=== PATIENT | female | born 1950 | race Caucasian/White ===

== ENCOUNTER 2017-12-18 05:21 | Inpatient (IN) | payer MEDICARE ==
[2017-12-11 11:16] LABS: CLARITY,URINE SLIGHTLY CLOUDY (Clear); COLOR,URINE YELLOW (Yellow); GLUCOSE, URINE NEGATIVE (Neg); KETONES,URINE NEGATIVE (Neg); LEUKOCYTE ESTERASE ,URINE SMALL (Neg); NITRITES, URINE NEGATIVE (Neg); OCCULT BLOOD,URINE NEGATIVE (Neg); PROTEIN,URINE NEGATIVE (Neg); UROBILINOGEN,URINE 0.2 E.U/dL (0.2-1.0)
[2017-12-11 11:19] LABS: UA COLLECTION TYPE CLN CATCH MIDSTREAM
[2017-12-11 11:22] LABS: MUCUS STRANDS NONE SEEN /LPF (Neg); RBC,URINE 0-2 /HPF (0-2); SQUAMOUS EPITHELIAL CELL,UR FEW /LPF (FEW); TRANSITIONAL EPI CELLS,URINE FEW /HPF
[2017-12-11 11:23] LABS: BACTERIA,URINE NONE SEEN /HPF (Neg)
[2017-12-11 11:23] LABS: PRE OP PROTIME 10.2 SECONDS (9.0-12.0)
[2017-12-11 11:28] LABS: ALBUMIN 4.2 G/DL (3.4-5.0); ALBUMIN/GLOBULIN RATIO 1.2 (1.1-1.5); ALKALINE PHOSPHATASE 95 IU/L (46-116); BLOOD UREA NITROGEN 12 MG/DL (7-18); BUN/CREATININE RATIO 21.4 (6.6-38.0); CHLORIDE 102 MMOL/L (99-107); CREATININE 0.56 MG/DL (0.40-0.90); PRE OP ALT 28 U/L (30-65); PRE OP ANION GAP 8 (8-16); PRE OP AST 16 U/L (10-37); PRE OP BILIRUB, TOTAL 0.7 MG/DL (0.0-1.0); PRE OP GLUCOSE 88 MG/DL (70-104); PRE OP POTASSIUM 3.6 MMOL/L (3.4-5.1); PRE OP SODIUM 142 MMOL/L (135-145); TOTAL CARBON DIOXIDE 31.8 MMOL/L (24-32); TOTAL PROTEIN 7.7 G/DL (6.4-8.2); eGFR > 90 ML/MIN
[2017-12-11 11:34] LABS: BASOPHILS % (AUTO) 0.4 % (0-1); EOSINOPHILS # (AUTO) 0.3 X10'3 (0-0.9); EOSINOPHILS % (AUTO) 5.2 % (0-6); LYMPHOCYTES # (AUTO) 1.3 X10'3 (1.1-4.8); LYMPHOCYTES % (AUTO) 24.7 % (21-51); MEAN CORPUSCULAR HEMOGLOBIN 34.4 PG (27.0-31.0); MEAN CORPUSCULAR HGB CONC 35.5 % (33.0-36.5); MEAN CORPUSCULAR VOLUME 96.8 FL (78-98); MEAN PLATELET VOLUME 7.1 FL (7.4-10.4); MONOCYTES # (AUTO) 0.4 X10'3 (0-0.9); MONOCYTES % (AUTO) 7.5 % (2-12); NEUTROPHILS # (AUTO) 3.4 X10'3 (1.8-7.7); NEUTROPHILS % (AUTO) 62.2 % (42-75); PRE OP HEMATOCRIT 38.2 % (35.0-45.0); PRE OP HEMOGLOBIN 13.6 g/dL (12.0-16.0); PRE OP PLATELET COUNT 291 X10'3 (140-440); RED BLOOD COUNT 3.94 X10'6 (4.20-5.60); RED CELL DISTRIBUTION WIDTH 12.2 % (11.5-14.5)
[2017-12-11 11:38] LABS: PLATELET ESTIMATE NORMAL
[2017-12-11 11:39] LABS: SPHEROCYTES 1+
[2017-12-11 11:40] LABS: STOMATOCYTES 1+
[2017-12-18] VITALS (20 sets, daily range): BP systolic 84–134; BP diastolic 37–80
[~2017-12-18] VITALS: Ht 154.9 cm; Wt 56.7 kg
[~2017-12-18 05:21] MED LIST: ACET-2615 PO; BUPR150T15 PO; IBUP-1984 PO; LAMO200T2 PO; LISI-232 PO; VITA1CAP PO; [UNRECOGNIZED DRUG - CODE]; ringers solution, lacted 1,000 ML IV SCH
[2017-12-18] MEDS ORDERED: vancomycin inj 1,500 MG in normal saline 300ml IV soln IV ONE (05:30)
[2017-12-18] MEDS ORDERED: celeCOXIB 100mg capsule PO ONE (05:30)
[2017-12-18] MEDS ORDERED: oxyCODONE SR 10mg (sust. release) tab PO ONE (05:30)
[2017-12-18] MEDS ORDERED: scopolamine 1.5mg patch.TD72 TD ONE (05:30)
[2017-12-18] MEDS ORDERED: gabapentin 300mg capsule PO ONE (05:30)
[2017-12-18] MEDS ORDERED: acetaminophen 325mg tablet PO ONE (05:30)
[2017-12-18] MEDS ORDERED: tranexamic acid inj. 1,000 MG in normal saline 100ml IV soln 90 ML IV ONE (05:30)
[2017-12-18] MEDS ORDERED: ceFAZolin 2gm in dextrose, iso 100 ML IV ONE (05:30)
[2017-12-18] MEDS ORDERED: famotidine 20mg tablet PO ONE (05:30)
[2017-12-18] MEDS ORDERED: metoclopramide 5 mg/ml inj IV ONE (05:30)
[2017-12-18] MEDS ORDERED: LIDOcaine 1% (10mg/ml) 2ml vial ONE (05:42)
[2017-12-18] MEDS ORDERED: cloNIDine hcl/PF 100mcg/ml inj ONE (06:42)
[2017-12-18] MEDS ORDERED: ketorolac trometh. 30mg/ml inj. ONE (06:42)
[2017-12-18] MEDS ORDERED: epiNEPHrine 1 mg/ml inj ONE (06:42)
[2017-12-18] MEDS ORDERED: vancomycin 1,000mg inj ONE (06:42)
[2017-12-18] MEDS ORDERED: ROPIVAcaine 0.5% (5mg/ml) 30ml vial ONE (06:43)
[2017-12-18] MEDS: potassium cl 20mEq in 1/2 NS 1,000 ML IV SCH ×2 (07:02→15:02)
[2017-12-18] MEDS ORDERED: magnesium hydroxide 30ml (MOM) UD suspension PO PRN (07:05)
[2017-12-18] MEDS ORDERED: MORPHINE 2MG in 2ml NS syringe IV PRN (07:05)
[2017-12-18] MEDS ORDERED: diphenhydrAMINE 25mg capsule PO PRN ×2 (07:05)
[2017-12-18] MEDS ORDERED: acetaminophen 325mg tablet PO PRN (07:05)
[2017-12-18] MEDS ORDERED: ondansetron/PF 4mg/2ml inj IV PRN ×3 (07:05→08:15)
[2017-12-18] MEDS ORDERED: bisacodyl 10mg suppository rectal RC PRN (07:05)
[2017-12-18] MEDS ORDERED: tetracaine 1% (10mg/ml) pres. free inj. ONE (07:06)
[2017-12-18] MEDS ORDERED: MIDAZolam 1mg/ml 10ml vial ONE (07:08)
[2017-12-18] MEDS ORDERED: fentaNYL/PF 50MCG/1 ML 2ML syringe ONE (07:08)
[2017-12-18] MEDS ORDERED: morphine /PF 1mg/ml 10ml inj. ONE (07:08)
[2017-12-18] MEDS ORDERED: ePHEDrine 50MG/ML INJ. ONE (07:37)
[2017-12-18] MEDS ORDERED: dexamethasone sod phosphate 4mg/ml inj. ONE (07:37)
[2017-12-18] MEDS ORDERED: ondansetron/PF 4mg/2ml inj ONE (07:37)
[2017-12-18] MEDS: lisinopril 20mg tablet PO SCH (08:00)
[2017-12-18] MEDS ORDERED: LISINOPRIL PO SCH (08:00)
[2017-12-18] MEDS ORDERED: [UNRECOGNIZED DRUG - OTHER] PO SCH (08:00)
[2017-12-18] MEDS ORDERED: HYDROCHLOROTHIAZIDE PO SCH (08:00)
[2017-12-18] MEDS ORDERED: vancomycin/NS 1 GM ADD-VANTAGE 250 ML IV SCH (08:00)
[2017-12-18] MEDS: HYDROchlorothiazide 12.5mg capsule PO SCH (08:00)
[2017-12-18] MEDS ORDERED: ringers solution, lacted 1,000 ML IV SCH (08:04)
[2017-12-18] MEDS ORDERED: hydrALAZINE 20mg/ml inj. IV PRN (08:05)
[2017-12-18] MEDS ORDERED: labetalol 5mg/ml 20ml inj. IV PRN (08:05)
[2017-12-18] MEDS ORDERED: fentaNYL/PF 50MCG/1 ML 2ML syringe IV PRN ×2 (08:05)
[2017-12-18] MEDS ORDERED: morphine 4 MG/ML inj SYRINge IV PRN ×2 (08:05)
[2017-12-18] MEDS ORDERED: diphenhydrAMINE 50 mg/ml inj IV PRN (08:15)
[2017-12-18] MEDS: ceFAZolin 1GM/D5W- ADD-VANTAGE 50 ML IV SCH ×2 (10:20→16:55)
[2017-12-18] MEDS: HYDROcodone/acetaminophen 10/325mg tab PO PRN ×3 (10:21→21:12)
[2017-12-18] MEDS: gabapentin 300mg capsule PO SCH ×3 (11:32→21:12)
[2017-12-18] MEDS: ascorbic acid 500mg tablet PO SCH ×2 (11:32→19:15)
[2017-12-18] MEDS: multivitamins, therapeutics tablet PO SCH (11:32)
[2017-12-18] MEDS: buPROPion SR 150mg tablet PO SCH (11:32)
[2017-12-18] MEDS: aspirin 325mg tablet PO SCH (11:33)
[2017-12-18] MEDS ORDERED: vancomycin/NS 1 GM ADD-VANTAGE 250 ML IV ONE (19:00)
[2017-12-18] MEDS: sennosides 8.6mg tablet PO SCH (21:11)
[2017-12-18] MEDS: lamoTRIgine 100mg tablet PO SCH (21:12)
[2017-12-19] MEDS: potassium cl 20mEq in 1/2 NS 1,000 ML IV SCH ×3 (01:07→23:02)
[2017-12-19] MEDS: HYDROcodone/acetaminophen 10/325mg tab PO PRN ×5 (01:07→18:09)
[2017-12-19 01:27] VITALS: BP 101/51
[2017-12-19 06:00] VITALS: BP 91/36
[2017-12-19 07:00] LABS: BASOPHILS % (AUTO) 0.1 % (0-1); EOSINOPHILS # (AUTO) 0.2 X10'3 (0-0.9); EOSINOPHILS % (AUTO) 1.9 % (0-6); HEMATOCRIT 27.2 % (35.0-45.0); HEMOGLOBIN 9.6 g/dl (12.0-16.0); LYMPHOCYTES # (AUTO) 1.1 X10'3 (1.1-4.8); LYMPHOCYTES % (AUTO) 8.7 % (21-51); MEAN CORPUSCULAR HEMOGLOBIN 34.7 PG (27.0-31.0); MEAN CORPUSCULAR HGB CONC 35.1 % (33.0-36.5); MEAN CORPUSCULAR VOLUME 98.6 FL (78-98); MEAN PLATELET VOLUME 7.5 FL (7.4-10.4); MONOCYTES # (AUTO) 0.8 X10'3 (0-0.9); MONOCYTES % (AUTO) 6.2 % (2-12); NEUTROPHILS # (AUTO) 10.7 X10'3 (1.8-7.7); NEUTROPHILS % (AUTO) 83.1 % (42-75); PLATELET COUNT 227 X10'3 (140-440); RED BLOOD COUNT 2.76 X10'6 (4.20-5.60); RED CELL DISTRIBUTION WIDTH 11.9 % (11.5-14.5); WHITE BLOOD COUNT 12.8 X10'3 (4.5-11.0)
[2017-12-19 07:15] LABS: ANION GAP 3 (8-16); CHLORIDE 105 MMOL/L (99-107); POTASSIUM 4.3 MMOL/L (3.5-5.1); SODIUM 139 MMOL/L (135-145); TOTAL CARBON DIOXIDE 30.6 MMOL/L (24-32)
[2017-12-19] MEDS: lisinopril 20mg tablet PO SCH (07:21)
[2017-12-19] MEDS: HYDROchlorothiazide 12.5mg capsule PO SCH (07:21)
[2017-12-19] MEDS: ascorbic acid 500mg tablet PO SCH ×2 (07:36→20:39)
[2017-12-19] MEDS: multivitamins, therapeutics tablet PO SCH (07:36)
[2017-12-19] MEDS: gabapentin 300mg capsule PO SCH ×3 (07:36→20:40)
[2017-12-19] MEDS: buPROPion SR 150mg tablet PO SCH (07:36)
[2017-12-19] MEDS: aspirin 325mg tablet PO SCH (07:36)
[2017-12-19 10:00] VITALS: BP 105/44
[2017-12-19 14:00] VITALS: BP 101/43
[2017-12-19 17:00] VITALS: BP 98/41
[2017-12-19] MEDS: lamoTRIgine 100mg tablet PO SCH (20:40)
[2017-12-19] MEDS: sennosides 8.6mg tablet PO SCH (20:40)
[2017-12-19 22:00] VITALS: BP 101/42
[2017-12-20] MEDS: HYDROcodone/acetaminophen 10/325mg tab PO PRN ×5 (00:04→20:10)
[2017-12-20 06:00] VITALS: BP 96/54
[2017-12-20 06:25] LABS: BASOPHILS % (AUTO) 0.2 % (0-1); EOSINOPHILS # (AUTO) 0.2 X10'3 (0-0.9); EOSINOPHILS % (AUTO) 3.1 % (0-6); HEMOGLOBIN 9.3 g/dl (12.0-16.0); LYMPHOCYTES # (AUTO) 1.3 X10'3 (1.1-4.8); LYMPHOCYTES % (AUTO) 16.1 % (21-51); MEAN CORPUSCULAR HEMOGLOBIN 34.7 PG (27.0-31.0); MEAN CORPUSCULAR HGB CONC 35.8 % (33.0-36.5); MEAN CORPUSCULAR VOLUME 96.9 FL (78-98); MEAN PLATELET VOLUME 7.1 FL (7.4-10.4); MONOCYTES # (AUTO) 0.7 X10'3 (0-0.9); MONOCYTES % (AUTO) 8.6 % (2-12); NEUTROPHILS # (AUTO) 5.8 X10'3 (1.8-7.7); PLATELET COUNT 175 X10'3 (140-440); RED BLOOD COUNT 2.69 X10'6 (4.20-5.60); RED CELL DISTRIBUTION WIDTH 11.9 % (11.5-14.5); WHITE BLOOD COUNT 8.1 X10'3 (4.5-11.0)
[2017-12-20] MEDS: HYDROchlorothiazide 12.5mg capsule PO SCH (08:00)
[2017-12-20] MEDS: lisinopril 20mg tablet PO SCH (08:00)
[2017-12-20] MEDS: ascorbic acid 500mg tablet PO SCH ×2 (08:03→20:09)
[2017-12-20] MEDS: aspirin 325mg tablet PO SCH (08:03)
[2017-12-20] MEDS: gabapentin 300mg capsule PO SCH ×3 (08:04→20:09)
[2017-12-20] MEDS: buPROPion SR 150mg tablet PO SCH (08:04)
[2017-12-20] MEDS: multivitamins, therapeutics tablet PO SCH (08:04)
[2017-12-20 10:00] VITALS: BP 98/52
[2017-12-20 18:00] VITALS: BP 99/29
[2017-12-20] MEDS: lamoTRIgine 100mg tablet PO SCH (20:09)
[2017-12-20] MEDS: sennosides 8.6mg tablet PO SCH (20:09)
[2017-12-20 22:00] VITALS: BP 110/55
[2017-12-21] MEDS: HYDROcodone/acetaminophen 10/325mg tab PO PRN ×4 (00:09→14:17)
[2017-12-21 05:00] VITALS: BP 113/46
[2017-12-21 06:34] LABS: BASOPHILS % (AUTO) 0.3 % (0-1); EOSINOPHILS # (AUTO) 0.3 X10'3 (0-0.9); HEMOGLOBIN 9.9 g/dl (12.0-16.0); LYMPHOCYTES # (AUTO) 1.2 X10'3 (1.1-4.8); LYMPHOCYTES % (AUTO) 17.3 % (21-51); MEAN CORPUSCULAR HEMOGLOBIN 34.8 PG (27.0-31.0); MEAN CORPUSCULAR HGB CONC 35.3 % (33.0-36.5); MEAN CORPUSCULAR VOLUME 98.5 FL (78-98); MEAN PLATELET VOLUME 7.3 FL (7.4-10.4); MONOCYTES # (AUTO) 0.7 X10'3 (0-0.9); MONOCYTES % (AUTO) 9.6 % (2-12); NEUTROPHILS # (AUTO) 4.7 X10'3 (1.8-7.7); NEUTROPHILS % (AUTO) 68.8 % (42-75); PLATELET COUNT 204 X10'3 (140-440); RED BLOOD COUNT 2.84 X10'6 (4.20-5.60); RED CELL DISTRIBUTION WIDTH 12.1 % (11.5-14.5); WHITE BLOOD COUNT 6.8 X10'3 (4.5-11.0)
[2017-12-21] MEDS ORDERED: ASPI-1 PO (06:58)
[2017-12-21] MEDS ORDERED: HYDR-3972 PO (06:58)
[2017-12-21] MEDS ORDERED: SENN-173 PO (06:58)
[2017-12-21] MEDS ORDERED: GABA300C PO (06:58)
[2017-12-21] MEDS: lisinopril 20mg tablet PO SCH (07:17)
[2017-12-21] MEDS: HYDROchlorothiazide 12.5mg capsule PO SCH (07:17)
[2017-12-21] MEDS: gabapentin 300mg capsule PO SCH ×2 (07:48→14:16)
[2017-12-21] MEDS: buPROPion SR 150mg tablet PO SCH (07:48)
[2017-12-21] MEDS: multivitamins, therapeutics tablet PO SCH (07:48)
[2017-12-21] MEDS: aspirin 325mg tablet PO SCH (07:48)
[2017-12-21] MEDS: ascorbic acid 500mg tablet PO SCH (07:48)
[2017-12-21 10:00] VITALS: BP 100/42
== END 2017-12-21 16:10 | DRG 470 ==
LOC: PAS IN 05:21 → EDSTATUS 07:30 → ORTHO 4S 10:05
PROVIDERS: ADMIT Orthopaedic Surgery; ATTEND Orthopaedic Surgery
PROC: 0SRB06Z Replacement of Left Hip Joint with Oxidized Zirconium on Polyethylene Synthetic Substitute, Open Approach (ICD-10-PCS; principal; 2017-12-18 07:02)
DX: M16.12 Unilateral primary osteoarthritis, left hip (principal); D62 Acute posthemorrhagic anemia; F32.9 Major depressive disorder, single episode, unspecified; I10 Essential (primary) hypertension; M81.0 Age-related osteoporosis without current pathological fracture; Z79.82 Long term (current) use of aspirin; Z79.899 Other long term (current) drug therapy; Z87.891 Personal history of nicotine dependence
CPT/HCPCS: 36415; 71046; 72170; 80051; 80053; 81001; 85025; 85610; 85730; 86885; 86900; 86901; 87070; 87088; 93005; 97110; 97116; 97162; 97530; A4615; A7000; C1758; C1776; J0171; J0690; J0735; J1100; J1885; J2250; J2274; J2405; J2765; J2795; J3010; J3370; J3490; J7030; J7120

== ENCOUNTER 2021-08-30 18:35 | Emergency (ER) | payer MEDICARE ==
[~2021-08-30] VITALS: Ht 154.9 cm; Wt 55.0 kg
[~2021-08-30 18:35] MED LIST changes: -ACET-2615 PO; +ASPI-1 PO; +GABA300C PO; +HYDR-3972 PO; -IBUP-1984 PO; +SENN-173 PO; -ringers solution, lacted 1,000 ML IV SCH
[2021-08-30] MEDS ORDERED: acetaminophen 325mg tablet PO ONE (21:25)
[2021-08-30 21:54] VITALS: BP 150/71
== END 2021-08-30 21:55 | disposition home or self-care (01) ==
LOC: ER 18:36
DX: S00.03XA Contusion of scalp, initial encounter (principal); Z60.2 Problems related to living alone; Z88.5 Allergy status to narcotic agent; Z88.8 Allergy status to other drugs, medicaments and biological substances; Z79.82 Long term (current) use of aspirin; Z79.899 Other long term (current) drug therapy; W19.XXXA Unspecified fall, initial encounter; Y93.89 Activity, other specified; Y92.89 Other specified places as the place of occurrence of the external cause; Y99.8 Other external cause status
CPT/HCPCS: 70450; 72125; 99285

== ENCOUNTER 2023-11-12 12:48 | Emergency (ER) | payer MEDICARE ==
[~2023-11-12] VITALS: Ht 152.4 cm; Wt 55.5 kg
[~2023-11-12 12:48] MED LIST changes: +BUPR-231 PO; -BUPR150T15 PO; -SENN-173 PO; +SENN-362 PO
[2023-11-12 13:12] VITALS: TEMP 98.1
[2023-11-12 13:34] LABS: BASOPHILS % (AUTO) 0.4 % (0-1); EOSINOPHILS # (AUTO) 0.1 X10'3 (0-0.9); EOSINOPHILS % (AUTO) 1.5 % (0-6); HEMATOCRIT 35.2 % (35.0-45.0); HEMOGLOBIN 12.3 g/dl (12.0-16.0); LYMPHOCYTES # (AUTO) 0.9 X10'3 (1.1-4.8); LYMPHOCYTES % (AUTO) 13.3 % (21-51); MEAN CORPUSCULAR HEMOGLOBIN 35.4 PG (27.0-31.0); MEAN CORPUSCULAR VOLUME 101.2 FL (78-98); MEAN PLATELET VOLUME 6.8 FL (7.4-10.4); MONOCYTES # (AUTO) 0.5 X10'3 (0-0.9); MONOCYTES % (AUTO) 7.4 % (2-12); NEUTROPHILS # (AUTO) 5.1 X10'3 (1.8-7.7); NEUTROPHILS % (AUTO) 77.4 % (42-75); PLATELET COUNT 283 X10'3 (140-440); RED BLOOD COUNT 3.48 X10'6 (4.20-5.60); RED CELL DISTRIBUTION WIDTH 12.3 % (11.5-14.5); WHITE BLOOD COUNT 6.6 X10'3 (4.5-11.0)
[2023-11-12 13:55] LABS: ALBUMIN 4.2 G/DL (3.4-5.0); ANION GAP 6 (8-16); BLOOD UREA NITROGEN 16 MG/DL (7-18); BUN/CREATININE RATIO 20.3 (10.0-20.0); CALCIUM 9.2 MG/DL (8.5-10.1); CHLORIDE 101 MMOL/L (99-107); CREATININE 0.79 MG/DL (0.40-0.90); GLUCOSE 104 MG/DL (70-104); POTASSIUM 3.7 MMOL/L (3.5-5.1); PRO BRAIN NATRIURETIC PEPTIDE 40 PG/ML (0-125); SODIUM 136 MMOL/L (135-145); TOTAL CARBON DIOXIDE 28.7 MMOL/L (24-32); eCRCL 47 ML/MIN; eGFR 72 ML/MIN
[2023-11-12] MEDS: normal saline 1000ML IV soln IVB ONE (14:25)
[2023-11-12] MEDS: ondansetron/PF 4mg/2ml inj IV ONE (14:30)
[2023-11-12] MEDS: HYDROcodone/acetaminophen 5mg/325mg tablet PO ONE (14:31)
[2023-11-12 14:35] VITALS: BP 125/62; PULSE 82; O2SAT 99
[2023-11-12 15:00] VITALS: RESP 16
== END 2023-11-12 15:14 | disposition home or self-care (01) ==
LOC: ER 12:49
DX: S60.212A Contusion of left wrist, initial encounter (principal); W18.39XA Other fall on same level, initial encounter; Y93.01 Activity, walking, marching and hiking; Y92.89 Other specified places as the place of occurrence of the external cause; Y99.8 Other external cause status; E86.0 Dehydration; Z88.5 Allergy status to narcotic agent; Z59.00 Homelessness unspecified
CPT/HCPCS: 36415; 71045; 73090; 73110; 80048; 83880; 84145; 84484; 85025; 93005; 96361; 96374; 99285; J2405; J7030

== ENCOUNTER 2025-02-07 15:24 | Emergency (ER) | payer MEDICARE ==
[~2025-02-07] VITALS: Ht 165.1 cm; Wt 58.2 kg
[~2025-02-07 15:24] MED LIST changes: -BUPR-231 PO; +[UNRECOGNIZED DRUG - CODE] PO
[2025-02-07 15:36] VITALS: BP 160/82; PULSE 84; RESP 16; TEMP 97.5; O2SAT 98
--- NOTE | 2025-02-07 15:53 | ELECTROCARDIOGRAPH REPORT ---
[facility] Test Date: 2025-02-07 Test Time: 15:49:30 Pat Name: SUKUMAR QUIROS Department: [facility] Patient ID: [facility]-[id number] Room: Gender: F Pricing Associate: : 1950 Requested By: ALLAN ELAINE Order Number: [id number] Reading MD: Dr. Allan Elaine Measurements Intervals [place] Rate: 82 P: 84 TX: 185 QRS: 65 QRSD: 102 T: 75 QT: 409 QTc: 478 Interpretive Statements Sinus rhythm Electronically Signed On 02-07-2025 15:55:[address] Allan Elaine Please click the below link to view image of tracing.
--- NOTE | 2025-02-07 16:14 | Physician Documentation ---
History of Present Illness ~ Chief Complaint: Mechanical Fall Stated Complaint: EYE PAIN OK to notify your PCP?: Yes Source: patient Mode of Arrival: POV Exam Limitations: no limitations HPI 74-year-old female who is generally experienced a fall 6 days ago after tripping over a laundry basket and hitting her head on the right side. No thinners, no loss of consciousness. Old bruising to the right side of forehead, orbital and nasal bone. Mentions having blurry vision in the right eye. Tetanus within 5 Years?: No Medication Reconciliation Allergies: Coded Allergies: codeine (Verified Allergy, Unknown, HIVES, 02/07/25) meperidine HCl (Verified Allergy, Unknown, DIFFICULTY BREATHING, 02/07/25) Scheduled Aspirin (Aspirin), 325 MG PO Q24H@0830 Bupropion HCl (Bupropion SR), 300 MG PO DAILY, (Reported) Gabapentin (Neurontin), 300 MG PO TID Lamotrigine* (Lamictal*), 1 TAB PO HS, (Reported) Lisinopril/Hydrochlorothiazide 20/12.5 MG* (Lisinopril-Hctz 20/12.5 MG*), 1 TAB PO DAILY, (Reported) Sennosides (Senna Lax), 17.2 MG PO HS Vitamin B Comp W-C (Super B With Vit C), 2 EACH PO DAILY, (Reported) Scheduled PRN Hydrocodone Bit/Acetaminophen (Hydrocodon-Acetaminophn 10-325 tablet), 1 TAB PO Q4H PRN for moderate pain 4-6 Hydrocodone Bit/Acetaminophen (Hydrocodon-Acetaminophn 10-325 tablet), 2 TAB PO Q4H PRN for severe pain Miscellaneous Medications Bromelains (Bromelain), Unknown Dose, (Reported) Past Medical History Past Medical History: No Pertinent History Past Surgical History: noncontributory Lives with: Alone Lives In: Home Physical Exam Vital Signs: Temperature: 97.5, Source: Temporal, Heart Rate: 84, Respiratory Rate: 16, BP: 160/82, Pulse Oximetry: 98, Weight: 58.180 Oxygen Flow Rate: 0 Progress Results/Orders Results/Orders Vital Signs 02/07/25 15:36 Temp 97.5 Pulse 84 Resp 16 B/P (MAP) 160/82 Pulse Ox 98 O2 Flow Rate 0 Laboratory Tests Test 02/07/25 15:56 CBC Comment Chemistry Comments Departure Referrals: NO PRIMARY CARE PROVIDER (PCP) LUIS F NUNEZ [facility] Feb 07, 2025 16:14
[2025-02-07 16:16] LABS: ALBUMIN 4.2 G/DL (3.4-5.0); ANION GAP 6 (8-16); BLOOD UREA NITROGEN 19 MG/DL (7-18); BUN/CREATININE RATIO 21.8 (10.0-20.0); CALCIUM 9.4 MG/DL (8.5-10.1); CHLORIDE 98 MMOL/L (99-107); CREATININE 0.87 MG/DL (0.40-0.90); GLUCOSE 103 MG/DL (70-104); POTASSIUM 3.4 MMOL/L (3.5-5.1); SODIUM 134 MMOL/L (135-145); eCRCL 53 ML/MIN; eGFR 64 ML/MIN
[2025-02-07 16:23] LABS: BASOPHILS % (AUTO) 0.6 % (0-1); EOSINOPHILS # (AUTO) 0.2 X10'3 (0-0.9); EOSINOPHILS % (AUTO) 3.6 % (0-6); HEMATOCRIT 37.1 % (35.0-45.0); HEMOGLOBIN 13.2 g/dl (12.0-16.0); LYMPHOCYTES # (AUTO) 1.4 X10'3 (1.1-4.8); LYMPHOCYTES % (AUTO) 19.9 % (21-51); MEAN CORPUSCULAR HEMOGLOBIN 35.1 PG (27.0-31.0); MEAN CORPUSCULAR HGB CONC 35.7 g/dL (33.0-36.5); MEAN CORPUSCULAR VOLUME 98.4 FL (78-98); MEAN PLATELET VOLUME 7.2 FL (7.4-10.4); MONOCYTES # (AUTO) 0.5 X10'3 (0-0.9); MONOCYTES % (AUTO) 7.9 % (2-12); NEUTROPHILS # (AUTO) 4.7 X10'3 (1.8-7.7); PLATELET COUNT 330 X10'3 (140-440); RED BLOOD COUNT 3.77 X10'6 (4.20-5.60); RED CELL DISTRIBUTION WIDTH 11.9 % (11.5-14.5); WHITE BLOOD COUNT 6.9 X10'3 (4.5-11.0)
--- NOTE | 2025-02-07 18:13 | RADIOLOGY REPORT ---
CT CT HEAD INDICATION: fall on right head 6 days ago, blurry vision right eye EXAM DATE: 02/07/2025 05:16 PM COMPARISON: CT HEAD on DOS: 08/30/21 RADIATION DOSE: CTDIvol: 47 mGy, DLP: 816 mGy*cm PROCEDURE: CT scans of the head were obtained from the vertex to the skull base. Sagittal and coronal reconstructions were provided. All CT scans at this medical facility are performed using dose modulation techniques as appropriate t o a performed exam including the following: Automated exposure control was utilized; adjustment of th e MA and/or KV according to patient size; and use of iterative reconstruction technique. FINDINGS: There is sulcal and ventricular prominence. The brainshows normal morphology and shaw-whi te matter differentiation, without intracranial hemorrhage, extra-axial fluid collection, mass effect or acute large vessel infarct. The ventricles are normal in size. The basal cisterns are patent. The skull and visible facial bones are intact. The paranasal sinuses, mastoid air cells and middle ear c avities are well-aerated. The soft tissues of the scalp are unremarkable. IMPRESSION: No acute intracranial abnormality.
== END 2025-02-07 19:41 | disposition left against medical advice (07) ==
LOC: ER 15:24
DX: S00.83XA Contusion of other part of head, initial encounter (principal); S00.33XA Contusion of nose, initial encounter; H53.8 Other visual disturbances; Z88.5 Allergy status to narcotic agent; Z88.8 Allergy status to other drugs, medicaments and biological substances; Z79.899 Other long term (current) drug therapy; W18.09XA Striking against other object with subsequent fall, initial encounter; Y93.89 Activity, other specified; Y92.89 Other specified places as the place of occurrence of the external cause; Y99.8 Other external cause status
CPT/HCPCS: 36415; 70450; 80048; 85025; 93005